=== PATIENT | female | born 1945 | race Caucasian/White ===

== ENCOUNTER 2020-06-28 17:43 | Observation (INO) | payer MEDICARE ==
[~2020-06-28] VITALS: Ht 147.3 cm; Wt 57.8 kg
[2020-06-28] MEDS ORDERED: AMLODIPINE BESYLATE 10 MG TAB PO ONE (18:15)
[2020-06-28 18:17] LABS: BASOPHILS # (AUTO) 0.1 (0.0-0.1); BASOPHILS % 0.7 % (0.0-1.0); EOSINOPHILS # (AUTO) 0.4 (0.0-0.4); EOSINOPHILS % 3.1 % (0.0-6.0); HEMATOCRIT 44.7 % (34.2-44.1); HEMOGLOBIN 14.9 g/dL (12.0-16.0); LYMPHOCYTES # (AUTO) 3.4 (1.0-3.2); LYMPHOCYTES % 26.6 % (18.0-39.1); MEAN CORPUSCULAR HEMOGLOBIN 29.9 pg (28-32); MEAN CORPUSCULAR HGB CONC 33.3 g/dL (31-35); MEAN CORPUSCULAR VOLUME 89.6 fL (81-99); MONOCYTES # (AUTO) 0.8 (0.2-0.8); MONOCYTES % 5.9 % (4.4-11.3); NEUTROPHILS # (AUTO) 8.1 (2.1-6.9); NEUTROPHILS % 63.3 % (38.7-80.0); PLATELET COUNT 191 x10e3/uL (140-360); RED BLOOD COUNT 4.99 x10e6/uL (3.6-5.1); RED CELL DISTRIBUTION WIDTH 14.9 % (11.7-14.4)
--- NOTE | 2020-06-28 18:17 | Emergency Department Note ---
History of Present Illnes History of Present Illness Chief Complaint: Chest Pain History of Present Illness This is a 75 year old female presents with headache for last 2 hours, mild [address]vet[address] st tightness, states this happens when her blood pressure goes up pt is out of her amlodipine. denies sob, denies diaphoresis. Historian: Patient Arrival Mode: Car Onset (how long ago): hour(s) (2) Location: head, chest Quality: mild headache and chest pressure Radiation: Reports non-radiation Severity: mild Onset quality: gradual Duration (how long): hour(s) (2) Timing of current episode: constant Progression: unchanged Chronicity: recurrent Context: Denies recent illness, Denies recent surgery Relieving factors: none Exacerbating factors: other (states her elevated blood pressure causes this to happen) Associated symptoms: Reports denies other symptoms Treatments prior to arrival: none Past Medical/Family History Physician Review I have reviewed the patient's past medical and family history. Any updates have been documented here. Past Medical History Recent Fever: No Clinical Suspicion of Infectio: No New/Unexplained Change in Ment: No Past Medical History: Hypertension Past Surgical History: None Social History Smoking Cessation: Never Smoker Counseling Performed: No Alcohol Use: None Any Illegal Drug Use: No Other Any Pre-Existing Lines (PICC,: No Review of Systems Review of Systems Constitutional: Reports no symptoms EENTM: Reports no symptoms Cardiovascular: Reports as per HPI Respiratory: Reports no symptoms Gastrointestinal: Reports no symptoms Genitourinary: Reports no symptoms Musculoskeletal: Reports no symptoms Integumentary: Reports no symptoms Neurological: Reports as per HPI Psychological: Reports no symptoms Endocrine: Reports no symptoms Hematological/Lymphatic: Reports no symptoms Physical Exam Related Data Allergies: Coded Allergies: No Known Allergies (Unverified , 06/28/20) Triage Vital Signs Vital Signs Date Time Temp Pulse Resp B/P (MAP) Pulse Ox O2 Delivery O2 Flow Rate FiO2 06/28/20 17:55 98.9 75 18 157/105 99 Room Air Vital signs reviewed: Yes Physical Exam CONSTITUTIONAL Constitutional: Present well-developed, Present well-nourished; Absent distressed HENT HENT: Present normocephalic, Present atraumatic, Present oropharynx clear/moist, Present nose normal HENT L/R: Present left ext ear normal, Present right ext ear normal EYES Eyes: Reports PERRL, Reports conjunctivae normal NECK Neck: Present ROM normal PULMONARY Pulmonary: Present effort normal, Present breath sounds normal CARDIOVASCULAR Cardiovascular: Present regular rhythm, Present heart sounds normal, Present capillary refill normal, Present normal rate GASTROINTESTINAL Abdominal: Present soft, Present nontender, Present bowel sounds normal GENITOURINARY Genitourinary: Present exam deferred SKIN Skin: Present warm, Present dry MUSCULOSKELETAL Musculoskeletal: Present ROM normal NEUROLOGICAL Neurological: Present alert, Present oriented x 3, Present no gross motor or sensory deficits PSYCHOLOGICAL Psychological: Present mood/affect normal, Present judgement normal Results Laboratory Laboratory Laboratory Tests Test 06/28/20 17:46 White Blood Count 12.78 x10e3/uL (4.8-10.8) Red Blood Count 4.99 x10e6/uL (3.6-5.1) Hemoglobin 14.9 g/dL (12.0-16.0) Hematocrit 44.7 % (34.2-44.1) Mean Corpuscular Volume 89.6 fL (81-99) Mean Corpuscular Hemoglobin 29.9 pg (28-32) Mean Corpuscular Hemoglobin Concent 33.3 g/dL (31-35) Red Cell Distribution Width 14.9 % (11.7-14.4) Platelet Count 191 x10e3/uL (140-360) Neutrophils (%) (Auto) 63.3 % (38.7-80.0) Lymphocytes (%) (Auto) 26.6 % (18.0-39.1) Monocytes (%) (Auto) 5.9 % (4.4-11.3) Eosinophils (%) (Auto) 3.1 % (0.0-6.0) Basophils (%) (Auto) 0.7 % (0.0-1.0) Neutrophils # (Auto) 8.1 (2.1-6.9) Lymphocytes # (Auto) 3.4 (1.0-3.2) Monocytes # (Auto) 0.8 (0.2-0.8) Eosinophils # (Auto) 0.4 (0.0-0.4) Basophils # (Auto) 0.1 (0.0-0.1) Absolute Immature Granulocyte (auto 0.05 x10e3/uL (0-0.1) Sodium Level 143 mmol/L (136-145) Potassium Level 3.3 mmol/L (3.5-5.1) Chloride Level 107 mmol/L (98-107) Carbon Dioxide Level 26 mmol/L (22-29) Anion Gap 13.3 mmol/L (8-16) Blood Urea Nitrogen 12 mg/dL (7-26) Creatinine 0.60 mg/dL (0.57-1.11) Estimat Glomerular Filtration Rate > 60 ML/MIN (60-) BUN/Creatinine Ratio 20 (6-25) Glucose Level 108 mg/dL (74-118) Calcium Level 8.4 mg/dL (8.4-10.2) Total Bilirubin 0.3 mg/dL (0.2-1.2) Aspartate Amino Transf (AST/SGOT) 25 IU/L (5-34) Alanine Aminotransferase (ALT/SGPT) 14 IU/L (0-55) Alkaline Phosphatase 51 IU/L (40-150) Creatine Kinase 56 IU/L (29-168) Creatine Kinase MB 2.10 ng/mL (0-5.0) Troponin I 0.015 ng/mL (0-0.300) Total Protein 7.5 g/dL (6.5-8.1) Albumin 3.8 g/dL (3.5-5.0) Globulin 3.7 g/dL (2.3-3.5) Albumin/Globulin Ratio 1.0 (0.8-2.0) Lab results reviewed: Yes Imaging Imaging results reviewed: Yes Impressions Procedure: [id number] CT/CT BRAIN WO Exam Date: 06/28/20 Exam Time: 1820 REPORT STATUS: Signed EXAMINATION: Head CT HISTORY: 75-year-old female with headache COMPARISON: None. TECHNIQUE: Helical axial images of the head were obtained. Reformatted coronal and sagittal images from the axial data. Dose modulation, iterative reconstruction, and/or weight based adjustment of the mA/kV was utilized to reduce the radiation dose to as low as reasonably achievable. FINDINGS: Parenchyma: 1. Few scattered and mildly confluent periventricular white matter hypodensities, most likely nonspecific chronic microvascular ischemic changes. 2. Approximately 1.2 cm hypodensity adjacent to the right inferior frontal horn corresponds to an age indeterminate ischemia. 3. No mass or hemorrhage. No CT evidence of acute territorial vascular insult. Extra-axial spaces:No abnormal density. No extra-axial fluid collections Brain volume: Normal for age. Ventricles: No hydrocephalus or displacement. Arteries: No density suggestive of thrombus. Dural sinuses: No abnormal density. Foramen magnum: No mass, Chiari malformation, or basilar invagination. Sella: No obvious mass. Paranasal/mastoid sinuses: Imaged portions unremarkable. Skull/Scalp: No lytic or blastic lesions. No fractures. IMPRESSION: 1. No acute intracranial hemorrhage. 2. Hypodensity N to the right frontal horn may represent an age indeterminate ischemia. 3. Mild nonspecific chronic microvascular ischemic changes.. Signed by: Dr. Tanesha Tracey M.D. on 06/28/2020 6:56 PM Dictated By: TANESHA TRACEY MD 55 Transcribed By: CADE on 06/28/201855 COPY TO: KORI DE JESUS MD~ Procedures 12 Lead ECG Interpretation ECG Interpretation : ECG: ECG 1 Countersinker: Interpreted by ED physician Date: Jun 28, 2020 Time: 18:00 Rhythm: sinus rhythm Rate: normal BPM: 74 QRS axis: normal Conduction: right bundle branch block ST segments normal: Yes T waves normal: No (non specific changes) Other findings: no other findings Clinical Impression: abnormal ECG Assessment & Plan Medical Decision Making MDM pt with elevated blood pressure, chest discomfort and headache cbc, cmp, ekg, cardiac enzymes,ct brain ordered to eval for myocardial infarction, electrolyte abnormality, renal insufficiency, intracranial mass, subdural bleed, subarachnoid bleed amlodipine 10 mg po ordered pt with head ct that shows a possible age indeterminate ischemic event near right ventricular horn. i spoke with dr moser and dr rodriges, place in obs, order mri, mra brain in am Assessment & Plan Final Impression: (1) Headache (2) HTN (hypertension) (3) Abnormal head CT Depart Disposition: ADMITTED Last Vital Signs Date Time Temp Pulse Resp B/P (MAP) Pulse Ox O2 Delivery O2 Flow Rate FiO2 06/28/20 17:55 98.9 75 18 157/105 99 Room Air Medications in the ED Amlodipine Besylate 10 mg ONCE ONCE PO ; Start 06/28/20 at 18:15; Stop 06/28/20 at 18:16 KORI DE JESUS MD Jun 28, 2020 18:17
[2020-06-28 18:38] LABS: ALANINE AMINOTRANSFERASE 14 IU/L (0-55); ALBUMIN 3.8 g/dL (3.5-5.0); ALKALINE PHOSPHATASE 51 IU/L (40-150); ANION GAP 13.3 mmol/L (8-16); BLOOD UREA NITROGEN 12 mg/dL (7-26); BUN/CREATININE RATIO 20 (6-25); CALCIUM 8.4 mg/dL (8.4-10.2); CARBON DIOXIDE 26 mmol/L (22-29); CHLORIDE 107 mmol/L (98-107); CREATINE KINASE 56 IU/L (29-168); EST GLOMERULAR FILTRATION RATE > 60 ML/MIN (60-); GLUCOSE 108 mg/dL (74-118); POTASSIUM 3.3 mmol/L (3.5-5.1); SODIUM 143 mmol/L (136-145)
--- NOTE | 2020-06-28 19:00 | Diagnostic Imaging Report ---
EXAMINATION: Head CT HISTORY: 75-year-old female with headache COMPARISON: None. TECHNIQUE: Helical axial images of the head were obtained. Reformatted coronal and sagittal images from the axial data. Dose modulation, iterative reconstruction, and/or weight based adjustment of the mA/kV was utilized to reduce the radiation dose to as low as reasonably achievable. FINDINGS: Parenchyma: 1. Few scattered and mildly confluent periventricular white matter hypodensities, most likely nonspecific chronic microvascular ischemic changes. 2. Approximately 1.2 cm hypodensity adjacent to the right inferior frontal horn corresponds to an age indeterminate ischemia. 3. No mass or hemorrhage. No CT evidence of acute territorial vascular insult. Extra-axial spaces:No abnormal density. No extra-axial fluid collections Brain volume: Normal for age. Ventricles: No hydrocephalus or displacement. Arteries: No density suggestive of thrombus. Dural sinuses: No abnormal density. Foramen magnum: No mass, Chiari malformation, or basilar invagination. Sella: No obvious mass. Paranasal/mastoid sinuses: Imaged portions unremarkable. Skull/Scalp: No lytic or blastic lesions. No fractures. IMPRESSION: 1. No acute intracranial hemorrhage. 2. Hypodensity N to the right frontal horn may represent an age indeterminate ischemia. 3. Mild nonspecific chronic microvascular ischemic changes.. Signed by: Dr. Josey Tracey M.D. on 06/28/2020 6:56 PM
--- OUTSIDE RECORDS SUMMARY | 2020-06-28 19:13 | XMS REPORT | Continuity of Care Document ---
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 Allergies, Adverse Reactions, Alerts Allergy Name Allergy Type Status Severity Reaction(s) Onset Date Inacti ve Date Treating Clinician Comments Source codeine DA Active MO 2020-05-10 00:00:00 [facility] codeine DA Active MO 2020-04-26 00:00:00 [facility] Medications This patient has no known medications. Procedures This patient has no known procedures. Results Test Description Test Time Test Comments Results Result Comments Source CT BRAIN WO 2020-06-28 18:50:00 [facility] 1945 Sex: F [facility] [address] [address] Patient Name: DANII ANDREA MR #: [id number] : 1945 Age/Sex: 75/F Req #: [id number] Adm Physician: Ordered by: KORI DE JESUS MD Report #: [id number] Location: ER Room/Bed: Procedure: [id number] CT/CT BRAIN WO Exam Date: 06/28/20 Exam Time: 0 REPORT STATUS: Signed EXAMINATION: Head CT HISTORY: 75-year-old female with headache COMPARISON: None. TECHNIQUE: Helical axial images of the head were obtained. Reformatted coronal and sagittal images from the axial data. Dose modulation, iterative reconstruction, and/or weight based adjustment of the mA/kV was utilized to reduce the radiation dose to as low as reasonably achievable. FINDINGS: Parenchyma: 1. Few scattered and mildly confluent periventricular white matter hypodensities, most likely nonspecific chronic microvascular ischemic changes. 2. Approximately 1.2 cm hypodensity adjacent to the right inferior frontal horn corresponds to an age indeterminate ischemia. 3. No mass or hemorrhage. No CT evidence of acute territorial vascular insult. Extra-axial spaces:No abnormal density. No extra-axial fluid collections Brain volume: Normal for age. Ventricles: No hydrocephalus or displacement. Arteries: No density suggestive of thrombus. Dural sinuses: No abnormal density. Foramen magnum: No mass, Chiari malformation, or basilar invagination. Sella: No obvious mass. Paranasal/mastoid sinuses: Imaged portions unremarkable. Skull/Scalp: No lytic or blastic lesions. No fractures. IMPRESSION: 1. No acute intracranial hemorrhage. 2. Hypodensity N to the right frontal horn may represent an age indeterminate ischemia. 3. Mild nonspecific chronic microvascular ischemic changes.. Signed by: Dr. Tanesha Tracey M.D. 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 No diastases of the SI joints or pubic symphysis. Hip joints are not dislocated. Proximal femurs are intact. Degenerative changes are present in the spine. IMPRESSION: No acute bony abnormalities of the pelvis or left hip. Location: [facility] at 1621 Reported and signed by: Rhett Pearson MD CC: Yosef [facility] DO; Tavo Bowers NP Technologist: Brandy Soares Trnscrpt Data: 06/09/2020 (1621) [email or web address] Orig Print D/T: S: 06/09/2020 (2586) PAGE 1 Signed Report - CT L-SPINE W/O CONTRAST 2020-04-26 12:06:00 Name: DANII ANDREA [facility] : 1945 Age/S: 74 / F [address] [facility] Unit #: [id number] Loc: [place] [address] Phys: Ronak Paul MD Acct: [id number] Dis Date: Status: REG ER PHONE #: [phone] Exam Date: 04/26/2020 1139 FAX #: [phone] Reason: pain EXAMS: CPT CODE: [id number] CT L-SPINE W/O CONTRAST 31281 HISTORY: pain TECHNIQUE: 2.[address] of the lumbar spine with coronal and sagittal reformatting. Automated exposure control for dose reduction. COMPARISON: None FINDINGS: There is S-shaped scoliosis of the thoracic and lumbar spine with disc degeneration seen throughout the visualized spine. Vertebral body heights are preserved although there are sclerotic changes throughout the vertebral bodies of the lumbar spine. Additionally small to moderate-sized vertebral body osteophytes are seen throughout the visualized spine and there is also degeneration of the facet joints in the lumbar spine. Grade 1 anterolisthesis of L4-L5 is noted. T11-T12: There is severe right-sided foraminal narrowing. Central canal and left foramen are patent. After spot calcifications are present in the abdominal aorta and iliac arteries. T12-L1: No disc bulge or protrusion. No cental canal or foraminal stenosis L1-L2: Moderate right-sided foraminal narrowing. Left foramen and central canal are patent. L2-L3: Moderate right-sided foraminal narrowing and severe left-sided foraminal narrowing. Central canal is widely patent. L3-L4: Moderate to severe right-sided foraminal narrowing and severe left-sided foraminal narrowing. Central canal is patent. L4-L5: Severe bilateral foraminal narrowing. Central canal is patent. L5-S1: Severe bilateral foraminal narrowing. Central canal is patent. IMPRESSION: Severe degenerative changes and scoliosis of the thoracic and lumbar spine. This results in multilevel foraminal narrowing as described PAGE 1 Signed Report (CONTINUED) Name: DANII ANDREA [facility] : 1945 Age/S: 74 / F [address] [facility] Unit #: [id number] Loc: [place] [address] Phys: Ronak Paul MD Acct: [id number] Dis Date: Status: REG ER PHONE #: [phone] Exam D ate: 04/26/2020 1139 FAX #: [phone] Reason: pain EXAMS: CPT CODE: [id number] CT L-SPINE W/O CONTRAST 564[address] <Continued> above. Correlate clinically for radiculopathy. Location: [facility] at 1206 Reported and signed by: Rhett Pearson MD CC: Ronak Paul MD Technologist:ARA DENNEY, RT(R),CT CTDI: DLP: Trnscb Date/Time: 04/26/2020 (1206) [email or web address] Orig Print D/T: S: 04/26/2020 (1210) PAGE 2 Signed Report
[2020-06-28] MEDS ORDERED: SODIUM CHLORIDE FLUSH 10 ML SYR INJ PRN (21:00)
--- OUTSIDE RECORDS SUMMARY | 2020-06-28 21:04 | XMS REPORT | Continuity of Care Document ---
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 Allergies, Adverse Reactions, Alerts Allergy Name Allergy Type Status Severity Reaction(s) Onset Date Inacti ve Date Treating Clinician Comments Source codeine DA Active MO 2020-05-10 00:00:00 [facility] codeine DA Active MO 2020-04-26 00:00:00 [facility] Medications This patient has no known medications. Procedures This patient has no known procedures. Results Test Description Test Time Test Comments Results Result Comments Source CT BRAIN WO 2020-06-28 18:50:00 [facility] 1945 Sex: F [facility] [address] [address] Patient Name: DANII ANDREA MR #: [id number] : 1945 Age/Sex: 75/F Req #: [id number] Adm Physician: Ordered by: KORI DE JESUS MD Report #: [id number] Location: ER Room/Bed: Procedure: [id number] CT/CT BRAIN WO Exam Date: 06/28/20 Exam [...] HIP W/PEL UNI 2+V LT 2020-06-09 16:21:00 [facility] 1945 Sex: F Name: DANII ANDREA [facility] : 1945 Age/S:74 /F [address] [facility] Unit#:[id number] Loc: [place] [address] 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 No diastases of the SI joints or pubic symphysis. Hip joints are not dislocated. Proximal femurs are intact. Degenerative changes are present in the spine. IMPRESSION: No acute bony abnormalities of the pelvis or left hip. Location: [facility] at 1621 Reported and signed by: Rhett Pearson MD CC: Yosef [facility] DO; Tavo Bowers NP Technologist: Brandy Soares Trnscrpt Data: 06/09/2020 (1621) [email or web address] Orig Print D/T: S: 06/09/2020 (3803) PAGE 1 Signed Report - CT L-SPINE W/O CONTRAST 2020-04-26 12:06:00 Name: DANII ANDREA [facility] : 1945 Age/S: 74 / F [address] [facility] Unit #: [id number] Loc: [place] [address] Phys: Ronak Paul MD Acct: [id number] Dis Date: Status: REG ER PHONE #: [phone] Exam Date: 04/26/2020 1139 FAX #: [phone] Reason: pain EXAMS: CPT CODE: [id number] CT L-SPINE W/O CONTRAST [address] HISTORY: pain TECHNIQUE: 2.[address] [...] 1 Signed Report (CONTINUED) Name: DANII ANDREA [facility] : 1945 Age/S: 74 / F [address] [facility] Unit #: [id number] Loc: [place] [address] Phys: Ronak Paul MD Acct: [id number] Dis Date: Status: REG ER PHONE #: [phone] Exam D ate: 04/26/2020 1139 FAX #: [phone] Reason: pain EXAMS: CPT CODE: [id number] CT L-SPINE W/O CONTRAST [address] <Continued> above. Correlate clinically for radiculopathy. Location: [facility] at 1206 Reported and signed by: Rhett Pearson MD CC: Ronak Paul MD Technologist:ARA DENNEY, RT(R),CT CTDI: DLP: Trnscb Date/Time: 04/26/2020 (1206) [email or web address] Orig Print D/T: S: 04/26/2020 (1210) PAGE 2 Signed Report
[2020-06-28 21:57] VITALS: BP 176/78
[2020-06-28] MEDS ORDERED: MOTRIN200 MG PO (22:32)
[2020-06-28] MEDS ORDERED: OS-CAL 500+D T1 EACH PO (22:33)
[2020-06-28] MEDS ORDERED: IBUPROFEN 200 MG TAB PO PRN (23:00)
[2020-06-28] MEDS: IBUPROFEN 400 MG TAB PO PRN (23:01)
[2020-06-29 00:20] VITALS: BP 136/68
[2020-06-29 05:09] LABS: BASOPHILS # (AUTO) 0.1 (0.0-0.1); BASOPHILS % 0.7 % (0.0-1.0); EOSINOPHILS # (AUTO) 0.6 (0.0-0.4); EOSINOPHILS % 5.8 % (0.0-6.0); HEMOGLOBIN 13.4 g/dL (12.0-16.0); LYMPHOCYTES # (AUTO) 3.7 (1.0-3.2); LYMPHOCYTES % 34.5 % (18.0-39.1); MEAN CORPUSCULAR HEMOGLOBIN 29.7 pg (28-32); MEAN CORPUSCULAR HGB CONC 33.5 g/dL (31-35); MEAN CORPUSCULAR VOLUME 88.7 fL (81-99); MONOCYTES # (AUTO) 0.8 (0.2-0.8); MONOCYTES % 7.5 % (4.4-11.3); NEUTROPHILS # (AUTO) 5.5 (2.1-6.9); NEUTROPHILS % 51.1 % (38.7-80.0); PLATELET COUNT 190 x10e3/uL (140-360); RED BLOOD COUNT 4.51 x10e6/uL (3.6-5.1); RED CELL DISTRIBUTION WIDTH 14.6 % (11.7-14.4)
[2020-06-29 05:53] VITALS: BP 119/54
[2020-06-29 05:55] LABS: CREATINE KINASE MB 1.7 ng/mL (0-5.0)
[2020-06-29 06:16] LABS: ALANINE AMINOTRANSFERASE 12 IU/L (0-55); ALBUMIN 3.3 g/dL (3.5-5.0); ALBUMIN/GLOBULIN RATIO 1.1 (0.8-2.0); ALKALINE PHOSPHATASE 48 IU/L (40-150); ANION GAP 9.6 mmol/L (8-16); BLOOD UREA NITROGEN 10 mg/dL (7-26); BUN/CREATININE RATIO 17 (6-25); CALCIUM 8.1 mg/dL (8.4-10.2); CARBON DIOXIDE 29 mmol/L (22-29); CHLORIDE 107 mmol/L (98-107); CREATININE, SERUM 0.59 mg/dL (0.57-1.11); EST GLOMERULAR FILTRATION RATE > 60 ML/MIN (60-); GLUCOSE 102 mg/dL (74-118); SODIUM 143 mmol/L (136-145)
[2020-06-29 06:20] LABS: POTASSIUM 2.6 mmol/L (3.5-5.1)
--- NOTE | 2020-06-29 06:26 | NUR ---
Called critical lab (K 2.6) to ; see chart for orders.
--- NOTE | 2020-06-29 07:05 | NUR ---
RCD PT AT BED PT IS ALERT AND ORIENTED RESTING ON BED ON BED IV PATENT BED LOW AND LOCKED CALL LIGHT IN REAC
[2020-06-29] MEDS: IBUPROFEN 400 MG TAB PO PRN ×2 (08:00→13:42)
[2020-06-29 08:54] VITALS: BP 144/65
[2020-06-29 08:55] VITALS: BP 144/65
[2020-06-29] MEDS ORDERED: ASPIRIN 81 MG ENTERIC COATED PO SCH (09:00)
[2020-06-29] MEDS ORDERED: IBUPROFEN 200 MG TAB PO SCH (09:00)
[2020-06-29] MEDS ORDERED: AMLODIPINE BESYLATE 10 MG TAB PO SCH (09:00)
[2020-06-29 10:05] LABS: THYROID STIMULATING HORMONE 1.292 uIU/mL (0.350-4.940)
[2020-06-29] MEDS ORDERED: AMLODIPINE BESY10 MG PO ×2 (10:07→10:33)
[2020-06-29] MEDS ORDERED: ASPIRIN CHEW81 MG PO (10:33)
[2020-06-29] MEDS ORDERED: POTASSIUM CHLORIDE 20 MEQ TAB CR PO STA (10:34)
[2020-06-29] MEDS ORDERED: NORVASC10 MG PO (10:38)
[2020-06-29] MEDS ORDERED: LIPITOR10 MG PO (10:42)
[2020-06-29 12:00] VITALS: BP 144/73
--- NOTE | 2020-06-29 12:01 | Diagnostic Imaging Report ---
EXAMINATION: Brain MRI and MR angiogram of the [place] of [place] and Neck without contrast. CLINICAL HISTORY: 75-year-old female with headache, possible CVA. COMPARISON: Head CT performed same date TECHNIQUE: Brain: Sagittal T2; axial DWI, T2, FLAIR, T1-IR, T2 gradient echo; coronal FLAIR. MRAs: 3D TOF and 2D-TOF images were obtained of the brain and neck. Image quality: Motion artifact and lack of intravenous contrast limits the evaluation particularly of the MR angiographic neck. BRAIN MRI FINDINGS: Parenchyma: 1. Chronic lacunar infarct adjacent to the right inferior frontal horn. 2. Few scattered white matter small T2 FLAIR hyperintense foci, most likely correspond to nonspecific chronic microvascular ischemic changes. 3. No mass, hemorrhage, acute or chronic infarcts. Skull: Unremarkable. Extra-axial spaces: No abnormal signal intensity or mass effect. Brain volume: Within normal limits for age. Ventricles: No hydrocephalus or displacement. Foramen magnum: Unremarkable. Sella: Unremarkable. Paranasal / mastoid sinuses: No significant inflammatory disease. MRA OF THE [place] OF [place] : Short segment focal areas of [id number] narrowing on the inferior dilatation of the left MCA M2 segment as well as in the superior and inferior divisions of the right MCA M2 segment. Questionable small approximately 3 mm size, wide neck and posteriorly oriented outpouching along the posterior wall of the right cavernous ICA may correspond to a tiny aneurysm. The distal internal carotid, distal vertebral, basilar, and cerebral arteries are patent. No significant stenosis, occlusion, aneurysm, or arteriovenous malformation is seen. Anatomic variation: Anterior Communicating Artery: Patent Posterior Communicating Arteries: Patent bilaterally Vertebral arteries: Codominant MRA OF THE NECK: If present, stenosis of the carotid bulbs is measured based on NASCET criteria i.e area of maximum stenosis compared to the cervical ICA distal to the bulb. Aortic arch and origin of the vessels: Unremarkable. Right Carotid Artery: The common carotid, carotid bulb, internal and external carotid arteries at the level of the neck are normal in caliber, and patent, no evidence of stenoses. Left Carotid Artery: The common carotid, carotid bulb, internal and external carotid arteries at the level of the neck are normal in caliber, and patent, no evidence of stenoses. Vertebral Arteries: Both are normal in morphology and caliber. Both are codominant. No significant stenosis is seen. IMPRESSION: Brain MRI: 1. No acute infarcts. 2. Small chronic lacunar infarct adjacent to the right frontal horn. 3. Mild nonspecific white matter chronic microvascular ischemic changes. Brain MRA: 1. No large vessel occlusion. 2. Mild to moderate focal stenoses in the bilateral MCAs and 2 segments as detailed above. Neck MRA: Suboptimal evaluation due to motion, grossly no large vessel occlusion or hemodynamically significant stenosis of the carotid or vertebral arteries. Signed by: Dr. Josey Tracey M.D. on 06/29/2020 11:57 AM
--- NOTE | 2020-06-29 12:01 | Diagnostic Imaging Report ---
EXAMINATION: Brain MRI and MR angiogram of the [place] and [place]ck without contrast. CLINICAL HISTORY: 75-year-old female with headache, possible CVA. COMPARISON: Head CT performed same date TECHNIQUE: Brain: Sagittal T2; axial DWI, T2, FLAIR, T1-IR, T2 gradient echo; coronal FLAIR. MRAs: 3D TOF and 2D-TOF images were obtained of the brain and neck. Image quality: Motion artifact and lack of intravenous contrast limits the evaluation particularly of the MR angiographic neck. BRAIN MRI FINDINGS: Parenchyma: 1. Chronic lacunar infarct adjacent to the right inferior frontal horn. 2. Few scattered white matter small T2 FLAIR hyperintense foci, most likely correspond to nonspecific chronic microvascular ischemic changes. 3. No mass, hemorrhage, acute or chronic infarcts. Skull: Unremarkable. Extra-axial spaces: No abnormal signal intensity or mass effect. Brain volume: Within normal limits for age. Ventricles: No hydrocephalus or displacement. Foramen magnum: Unremarkable. Sella: Unremarkable. Paranasal / mastoid sinuses: No significant inflammatory disease. MRA OF THE [place] : Short segment focal areas of [id number] narrowing on the inferior dilatation of the left MCA M2 segment as well as in the superior and inferior divisions of the right MCA M2 segment. Questionable small approximately 3 mm size, wide neck and posteriorly oriented outpouching along the posterior wall of the right cavernous ICA may correspond to a tiny aneurysm. The distal internal carotid, distal vertebral, basilar, and cerebral arteries are patent. No significant stenosis, occlusion, aneurysm, or arteriovenous malformation is seen. Anatomic variation: Anterior Communicating Artery: Patent Posterior Communicating Arteries: Patent bilaterally Vertebral arteries: Codominant MRA OF THE NECK: If present, stenosis of the carotid bulbs is measured based on NASCET criteria i.e area of maximum stenosis compared to the cervical ICA distal to the bulb. Aortic arch and origin of the vessels: Unremarkable. Right Carotid Artery: The common carotid, carotid bulb, internal and external carotid arteries at the level of the neck are normal in caliber, and patent, no evidence of stenoses. Left Carotid Artery: The common carotid, carotid bulb, internal and external carotid arteries at the level of the neck are normal in caliber, and patent, no evidence of stenoses. Vertebral Arteries: Both are normal in morphology and caliber. Both are codominant. No significant stenosis is seen. IMPRESSION: Brain MRI: 1. No acute infarcts. 2. Small chronic lacunar infarct adjacent to the right frontal horn. 3. Mild nonspecific white matter chronic microvascular ischemic changes. Brain MRA: 1. No large vessel occlusion. 2. Mild to moderate focal stenoses in the bilateral MCAs and 2 segments as detailed above. Neck MRA: Suboptimal evaluation due to motion, grossly no large vessel occlusion or hemodynamically significant stenosis of the carotid or vertebral arteries. Signed by: Dr. Josey Tracey M.D. on 06/29/2020 11:57 AM
--- NOTE | 2020-06-29 12:01 | Diagnostic Imaging Report ---
EXAMINATION: Brain MRI and MR angiogram of the [place] and [place]ck without contrast. CLINICAL HISTORY: 75-year-old female with headache, possible CVA. COMPARISON: Head CT performed same date TECHNIQUE: Brain: Sagittal T2; axial DWI, T2, FLAIR, T1-IR, T2 gradient echo; coronal FLAIR. MRAs: 3D TOF and 2D-TOF images were obtained of the brain and neck. Image quality: Motion artifact and lack of intravenous contrast limits the evaluation particularly of the MR angiographic neck. BRAIN MRI FINDINGS: Parenchyma: 1. Chronic lacunar infarct adjacent to the right inferior frontal horn. 2. Few scattered white matter small T2 FLAIR hyperintense foci, most likely correspond to nonspecific chronic microvascular ischemic changes. 3. No mass, hemorrhage, acute or chronic infarcts. Skull: Unremarkable. Extra-axial spaces: No abnormal signal intensity or mass effect. Brain volume: Within normal limits for age. Ventricles: No hydrocephalus or displacement. Foramen magnum: Unremarkable. Sella: Unremarkable. Paranasal / mastoid sinuses: No significant inflammatory disease. MRA OF THE [place] : Short segment focal areas of [id number] narrowing on the inferior dilatation of the left MCA M2 segment as well as in the superior and inferior divisions of the right MCA M2 segment. Questionable small approximately 3 mm size, wide neck and posteriorly oriented outpouching along the posterior wall of the right cavernous ICA may correspond to a tiny aneurysm. The distal internal carotid, distal vertebral, basilar, and cerebral arteries are patent. No significant stenosis, occlusion, aneurysm, or arteriovenous malformation is seen. Anatomic variation: Anterior Communicating Artery: Patent Posterior Communicating Arteries: Patent bilaterally Vertebral arteries: Codominant MRA OF THE NECK: If present, stenosis of the carotid bulbs is measured based on NASCET criteria i.e area of maximum stenosis compared to the cervical ICA distal to the bulb. Aortic arch and origin of the vessels: Unremarkable. Right Carotid Artery: The common carotid, carotid bulb, internal and external carotid arteries at the level of the neck are normal in caliber, and patent, no evidence of stenoses. Left Carotid Artery: The common carotid, carotid bulb, internal and external carotid arteries at the level of the neck are normal in caliber, and patent, no evidence of stenoses. Vertebral Arteries: Both are normal in morphology and caliber. Both are codominant. No significant stenosis is seen. IMPRESSION: Brain MRI: 1. No acute infarcts. 2. Small chronic lacunar infarct adjacent to the right frontal horn. 3. Mild nonspecific white matter chronic microvascular ischemic changes. Brain MRA: 1. No large vessel occlusion. 2. Mild to moderate focal stenoses in the bilateral MCAs and 2 segments as detailed above. Neck MRA: Suboptimal evaluation due to motion, grossly no large vessel occlusion or hemodynamically significant stenosis of the carotid or vertebral arteries. Signed by: Dr. Josey Tracey M.D. on 06/29/2020 11:57 AM
[2020-06-29 12:52] LABS: CREATINE KINASE MB 1.9 ng/mL (0-5.0)
--- NOTE | 2020-06-29 13:20 | NUR ---
PAGED AND TALKED DR COREY RIBEIRO REGARDING DISCHARGE HE IS OK TO DISCHARGE AND NOTIFIED JENIFER COUGHLIN
[2020-06-29 16:11] VITALS: BP 127/69
--- NOTE | 2020-06-29 16:19 | Consultation ---
DATE OF CONSULTATION: HISTORY OF PRESENT ILLNESS: The patient is a 75-year-old female with history of hypertension and high cholesterol. She only takes amlodipine. She came in with high blood pressure and headache and chest issues. She was noted to have some abnormality on the CAT scan of the head, so she was admitted for further evaluation. Her headache responded to Motrin. Blood pressure was controlled. PAST MEDICAL HISTORY: As above, hypertension. SOCIAL HISTORY: No smoking. REVIEW OF SYSTEMS: A complete 14-point review of system is negative otherwise. FAMILY HISTORY: Unremarkable. ALLERGIES: NONE KNOWN. MEDICATIONS: Per list. Total time spent 70 min more than half time counselling and coordination of care. PHYSICAL EXAMINATION: VITAL SIGNS: Temperature 98.9, pulse rate 75 and regular, respiratory rate is 17, blood pressure 157/105 when she was admitted . LUNGS: Fair air entry. ABDOMEN: Soft. EXTREMITIES: Good pulses. HEART: Normal heart sounds. NEUROLOGIC: The patient is alert. Follows commands. No lateralized weakness. Cranial nerve examination, normal. Mental status examination normal. Motor 5/5 lower extremities. Deep tendon reflexes are 2. ASSESSMENT AND PLAN: The patient admitted, had full imaging of the brain. She had what looks like TIA, probably related to hypertensive encephalopathy. Her blood pressure now under control. Her MRI does not show any acute stroke. She had old ischemic insults and intracranial vessel disease. She needs to be for TIA, on dual anti-platelet therapy with Plavix 75 mg daily as well as 81 mg of aspirin for three weeks and then she can be taken back to aspirin 81 mg daily. Continue with Lipitor at least 40 mg daily to keep LDL less than 70. Control other cardiovascular risk factors. Her imaging was reviewed including MRI brain, MRA brain, MRA neck, as well as the carotid Doppler done. The echocardiogram is reported without any thrombus. Her blood pressure is better controlled now. There is a questionable finding on the MRA of the head about some dilatation, which needs to be followed up as an out patient. The patient will follow up as an outpatient. She was counseled about the driving risks. Mirian Klein MD AM/VANI /[id number] CRISTIAN
--- NOTE | 2020-06-29 16:57 | NUR ---
PATIENT WENT HOME IN SAFE CONDITION WITH HER SON
[2020-06-29] MEDS ORDERED: ATORVASTATIN 10 MG TAB PO SCH (21:00)
--- NOTE | 2020-07-02 05:49 | Discharge Summary ---
ADMISSION DIAGNOSES: Headache, uncontrolled hypertension, right frontal horn hypodensity, possible ischemia, hypokalemia. DISCHARGE DIAGNOSES: Headache, uncontrolled hypertension, right frontal horn hypodensity, possible ischemia, hypokalemia, rule out CVA. HISTORY: Hypertension, migraine, degenerative joint disease. SURGICAL HISTORY: Hysterectomy. SOCIAL HISTORY: The patient admits to smoking weed as often as possible to help control the pain. HOSPITAL COURSE: A 75-year-old female, admits with complaints of dull frontal headache that began yesterday. She checked her blood pressure and her systolic blood pressure was 169. She says she gets headaches whenever her blood pressure was high and she ran out of Norvasc about a week ago. She denies focal weakness, changes in speech, vision, swallow, and dizziness. On admission, CT of the brain was negative for anything acute, but showed hypodensity in the right frontal horn, which may represent an age-indeterminate ischemia, so Neurology was consulted and an MRI of the brain and MRA of the neck and brain were ordered. The patient was started on aspirin and Lipitor and her home dose of Norvasc. Norvasc improved her blood pressure. All other imaging was negative per Neurology recommendation and the patient was cleared to discharge home. She was given new prescription for aspirin and Lipitor 20. Her Norvasc was also removed. The patient will follow up with Dr. Negron in 1 to 2 weeks. The patient understands instructions and agrees to plan. Dictated by Edwige Henley NP MD DAVIE Rodriguez/MODL /[id number]
== END 2020-06-29 16:45 | disposition home or self-care (01) ==
LOC: ER 17:54 → ERHOLD 20:58 → MED/SURG2 21:37
PROVIDERS: ADMIT Internal Medicine; ATTEND Internal Medicine
DX: R51.9 Headache, unspecified (principal); I67.4 Hypertensive encephalopathy; I10 Essential (primary) hypertension; E87.6 Hypokalemia; F12.90 Cannabis use, unspecified, uncomplicated; Z20.828 Contact with and (suspected) exposure to other viral communicable diseases; R93.0 Abnormal findings on diagnostic imaging of skull and head, not elsewhere classified
CPT/HCPCS: 36415 ×2; 70450; 70544; 70547; 70551; 80053 ×2; 80061; 82550 ×2; 82553 ×2; 83735; 84443; 84484 ×2; 85025 ×2; 93005; 93306; 93880; 99284; G0378 ×2; U0002

== ENCOUNTER → 2020-09-12 | Outpatient (CLI) | payer MEDICARE ==
[~2020-09-12] MED LIST: AMLODIPINE BESY10 MG PO; ASPIRIN CHEW81 MG PO; LIPITOR10 MG PO; MOTRIN200 MG PO; NORVASC10 MG PO; OS-CAL 500+D T1 EACH PO
== END ==
LOC: MAMMO 12:41
PROVIDERS: ATTEND Internal Medicine
DX: Z12.31 Encounter for screening mammogram for malignant neoplasm of breast (principal)
CPT/HCPCS: 77067

== ENCOUNTER → 2020-11-28 | Outpatient (CLI) | payer MEDICARE | LOC: DX 13:08 | PROVIDERS: ATTEND Internal Medicine | DX: M81.0 Age-related osteoporosis without current pathological fracture (principal) | CPT/HCPCS: 77080 ==

== ENCOUNTER 2021-06-22 10:10 | Emergency (ER) | payer MEDICARE ==
[~2021-06-22] VITALS: Ht 147.3 cm; Wt 57.6 kg
[2021-06-22] MEDS ORDERED: DEXAMETHASONE 4 MG TAB PO STA (11:10)
[2021-06-22] MEDS ORDERED: DEXAMETHASONE 4 MG TAB ONE (11:26)
== END 2021-06-22 11:23 | disposition home or self-care (01) ==
LOC: ER 10:18
DX: T78.40XA Allergy, unspecified, initial encounter (principal); I10 Essential (primary) hypertension; X58.XXXA Exposure to other specified factors, initial encounter; Z88.2 Allergy status to sulfonamides; Z88.8 Allergy status to other drugs, medicaments and biological substances; Z88.6 Allergy status to analgesic agent; Z91.041 Radiographic dye allergy status; Z79.82 Long term (current) use of aspirin; Z79.899 Other long term (current) drug therapy
CPT/HCPCS: 99282; J8540